=== PATIENT | male | born 1980 | race Caucasian/White ===

== ENCOUNTER 2018-05-21 19:24 | Inpatient (IN) | payer OTHER ==
[~2018-05-21] VITALS: Ht 180.3 cm; Wt 80.7 kg
[2018-05-21] MEDS ORDERED: LORAZEPAM INJ 2 MG/ML VIAL IV ONE (19:30)
[2018-05-21] MEDS ORDERED: IV NS 0.9% 1,000 ML IV ONE ×3 (19:30→21:00)
[2018-05-21] MEDS ORDERED: LORAZEPAM INJ 2 MG/ML VIAL ONE (19:31)
--- NOTE | 2018-05-21 19:37 | NUR ---
PT BBRA FROM HOME C/C RECTAL PAIN S/P BINDING SURGERY FOR HEMORRHOIDS 1 MONTH AGO. HEMORRHOID SEEN DURING ASSESSMENT, WITH NO REDNESS, NO SWELLING, NO DRAINAGE NOTED. PT IS AAOX4. SKIN WARM AND DIAPHORETIC. PT STATES PAIN 10/10. PT NOTED TO BE IN MID DISTRESS D/T RECTAL PAIN. RESP EVEN AND UNLABORED WITH A RATE OF 26-30 PER MINUTE. PT PLACED ON SEISMOGRAPH OPERATOR HELPER AND POX, PT NOTED TO BE SINUS TACHY AT 135-145 PER MINUTE. PT SAFETY AND COMFORT MEASURES IN PLACE. PT DENIES ANY ABD PAIN AT THIS TIME. PT KEEPS STATING "I WANT TO PUSH THE HEMORRHOID BACK IN". PT SAFETY AND COMFORT MEASURES IN PLACE. AWAITING MD FOR MELI
--- NOTE | 2018-05-21 19:38 | NUR ---
BLOOD CULTURES AND BLOOD SAMPLES COLLECTED AND SENT TO LAB
[2018-05-21 19:43] LABS: EOSINOPHILS % (AUTO) 0.1 % (0.0-6.0); MEAN CORPUSCULAR HEMOGLOBIN 24 PG (26.0-33.0); MEAN CORPUSCULAR HGB CONC 33 g/dl (31.0-36.0); MEAN CORPUSCULAR VOLUME 74 fL (80-96); MONOCYTES # (AUTO) 1.1 /CMM (0.1-1.30)
--- NOTE | 2018-05-21 19:43 | NUR ---
CONVERTING SUPERVISOR BEDSIDE FOR CHEST X-RAY
[2018-05-21 19:46] LABS: BASOPHILS # (AUTO) 0.3 /CMM (0.0-0.2); BASOPHILS % (AUTO) 1.7 % (0.0-2.0); HEMATOCRIT 49 % (39-51); LYMPHOCYTES # (AUTO) 1.7 /CMM (0.8-4.8); LYMPHOCYTES % (AUTO) 11.6 % (20.0-44.0); MONOCYTES % (AUTO) 7.3 % (2.0-12.0); NEUTROPHILS % (AUTO) 79.3 % (43.0-81.0); PLATELET COUNT (AUTO) 517 /CMM (150-450); RDW COEFFICIENT OF VARIATION 16.3 (11.5-15.0); WHITE BLOOD COUNT (AUTO) 15.1 K/uL (4.3-11.0)
--- NOTE | 2018-05-21 19:50 | NUR ---
PT UNABLE TO GIVE URINE SAMPLE AT THIS TIME. WILL TRY AGAIN. MADE AWARE
[2018-05-21] MEDS ORDERED: HYDROMORPHONE INJ 2 MG/ML DISP.SYRIN ONE (19:53)
[2018-05-21 19:54] LABS: CALCIUM, SERUM 12.6 mg/dL (8.5-10.1); CREATININE 4.1 mg/dL (0.6-1.3); GLUCOSE 215 mg/dL (74-106); UREA NITROGEN, BLOOD 22 mg/dL (7-18)
[2018-05-21 19:58] LABS: INR 0.89 (0.85-1.15)
[2018-05-21 19:59] LABS: CARBON DIOXIDE 15 mmol/L (21-32); CHLORIDE 90 mmol/L (98-107); POTASSIUM 3.3 mmol/L (3.5-5.1); SODIUM SERUM 135 mmol/L (136-145)
[2018-05-21] MEDS ORDERED: HYDROMORPHONE 1 MG/1 ML DISP.SYRIN IV ONE (20:00)
[2018-05-21 20:02] LABS: TROPONIN I < 0.017 ng/mL (0.00-0.056)
[2018-05-21 20:06] LABS: ALANINE AMINOTRANSFERASE 30 U/L (12-78); ALKALINE PHOSPHATASE 94 U/L (46-116); ASPARTATE AMINOTRANSFERASE 28 U/L (15-37); BILIRUBIN,DIRECT 0.2 mg/dL (0.0-0.2); BILIRUBIN,TOTAL 0.8 mg/dL (0.2-1.0); TOTAL PROTEIN, SERUM 11.8 g/dL (6.4-8.2)
[2018-05-21 20:08] LABS: ALBUMIN 6.9 g/dL (3.4-5.0)
--- NOTE | 2018-05-21 20:15 | NUR ---
PT UNABLE TO GIVE URINE SAMPLE AT THIS TIME. WATER PROVIDED TO PT. WILL TRY AGAIN. MADE AWARE
--- NOTE | 2018-05-21 20:53 | NUR ---
PAGED DR RONNA CAPPS FOR PANEL ADMISSION
[2018-05-21] MEDS ORDERED: LEVOFLOXACIN 750 MG /D5W 150ML 150 ML IV ONE (20:56)
--- NOTE | 2018-05-21 20:57 | NUR ---
PT ASSIGNED TELE [id number]
[2018-05-21] MEDS ORDERED: LEVOFLOXACIN 750 MG /D5W 150ML 750 MG in PREMIX 1 EA IV SCH (21:00)
[2018-05-21] MEDS ORDERED: MAG HYDROX/AL HYDROX/SIMETH 30 ML UDC PO PRN (21:30)
[2018-05-21] MEDS ORDERED: ACETAMINOPHEN 325 MG TABLET PO PRN (21:30)
[2018-05-21] MEDS ORDERED: MAGNESIUM HYDROXIDE 30 ML UDC PO PRN (21:30)
[2018-05-21] MEDS ORDERED: ONDANSETRON HCL/PF 4 MG/2 ML VIAL IVP PRN (21:30)
[2018-05-21] MEDS ORDERED: ZOLPIDEM TARTRATE 5 MG TABLET PO PRN (21:30)
[2018-05-21] MEDS ORDERED: INSULIN REGULAR, HUMAN 100 UNIT/ML 3 ML VIAL SQ PRN (21:30)
[2018-05-21] MEDS ORDERED: *INSULIN REGULAR(HUMULIN R)HUM 100 UNIT/ML VIAL SQ PRN (21:30)
[2018-05-21] MEDS ORDERED: DEXTROSE 50%-WATER 50 ML DISP.SYRIN IV PRN (21:30)
[2018-05-21] MEDS ORDERED: Z GUARD REMEDY 2 OZ OINT TP PRN (21:30)
--- NOTE | 2018-05-21 21:40 | NUR ---
PT UNABLE TO GIVE URINE SAMPLE. MADE AWARE. PT REFUSED WELCH CATH
--- NOTE | 2018-05-21 21:44 | NUR ---
REPORT GIVEN TO JASBIR MONTGOMERY FOR LIBBY.
[2018-05-21 22:00] VITALS: BP 136/81
[2018-05-21 22:00] LABS: CREATINE KINASE MB 2.5 ng/mL (0-3.6)
--- NOTE | 2018-05-21 22:00 | NUR ---
TIRE BUSTER NOTE PT RECEIVED VIA MaPSRNEY AND ABLE TO AMBULATE WITH STEADY GAIT TO BED. A/O X4 AND ABLE TO VERBALIZE NEEDS WITH FAMILY AT BEDSIDE. C/O SLIGHT PAIN TO RECTAL AREA.WILL CHECK ORDERS FOR PAIN MEDICATION. ON ROOM AIR AND SATURATING WELL. BREATHING REGULAR AND UNLABORED. TELE- SINUS RHYTHM 80'S. PATIENT UNABLE TO URINATE AT THIS TIME. INFORMED PATIENT HOW TO USE URINAL FOR URINE SPECIMEN. CALL LIGHT WITHIN REACH. WILL CONTINUE TO MONITOR.
[2018-05-21] MEDS: IV NS 0.9% 1,000 ML IV SCH (22:25)
[2018-05-21] MEDS: BLOOD SUGAR DIAGNOSTIC 1 EACH STRIP VI SCH (22:25)
[2018-05-21] MEDS: HYDROCODONE/APAP 5/325MG 1 EACH TABLET PO PRN (22:33)
[2018-05-22] VITALS: BP 131/87
--- NOTE | 2018-05-22 02:50 | NUR ---
0250 DR. CAPPS WAS NOTIFIED THAT PATIENT HAS NOT HAD URINE OUTPUT SINCE ADMITTED TO ED WITH NO ORDER MADE. PT. IS SLEEPING AT THIS TIME. NO SIGNS OF DISTRESS NOTED. NO BLADDER DISTENTION NOTED. WILL CONTINUE TO MONITOR.
--- NOTE | 2018-05-22 03:50 | NUR ---
0350 AMBULATED TO BATHROOM WITH STEADY GAIT. VOIDED 450ML OF FRANCISCA URINE.
[2018-05-22] MEDS: HYDROCODONE/APAP 5/325MG 1 EACH TABLET PO PRN (03:56)
[2018-05-22 04:00] VITALS: BP 156/93
[2018-05-22 06:21] LABS: BILIRUBIN,DIRECT 0.1 mg/dL (0.0-0.2); BILIRUBIN,TOTAL 0.5 mg/dL (0.2-1.0); CALCIUM, SERUM 8.3 mg/dL (8.5-10.1); CREATININE 1.5 mg/dL (0.6-1.3); MAGNESIUM 2.4 mg/dL (1.8-2.4); POTASSIUM 3.5 mmol/L (3.5-5.1); TOTAL PROTEIN, SERUM 7.2 g/dL (6.4-8.2)
[2018-05-22] MEDS: IV NS 0.9% 1,000 ML IV SCH (06:21)
[2018-05-22 06:41] LABS: CREATINE KINASE MB 3.9 ng/mL (0-3.6); THYROID STIMULATING HORMONE 1.354 uIU/mL (0.358-3.74)
[2018-05-22 07:35] LABS: BASOPHILS % (AUTO) 0.2 % (0.0-2.0); EOSINOPHILS % (AUTO) 0.6 % (0.0-6.0); HEMATOCRIT 34 % (39-51); HEMOGLOBIN 11.1 g/dL (13.5-17.5); LYMPHOCYTES # (AUTO) 1.9 /CMM (0.8-4.8); LYMPHOCYTES % (AUTO) 21.7 % (20.0-44.0); MEAN CORPUSCULAR HEMOGLOBIN 25 PG (26.0-33.0); MEAN CORPUSCULAR HGB CONC 33 g/dl (31.0-36.0); MEAN CORPUSCULAR VOLUME 76 fL (80-96); MONOCYTES # (AUTO) 1.1 /CMM (0.1-1.30); MONOCYTES % (AUTO) 12.4 % (2.0-12.0); NEUTROPHILS # (AUTO) 5.6 /CMM (1.8-8.9); NEUTROPHILS % (AUTO) 65.1 % (43.0-81.0); PLATELET COUNT (AUTO) 338 /CMM (150-450); RDW COEFFICIENT OF VARIATION 17.5 (11.5-15.0); RED BLOOD CELL COUNT(AUTO) 4.48 MIL/uL (4.5-6.0); WHITE BLOOD COUNT (AUTO) 8.6 K/uL (4.3-11.0)
[2018-05-22 07:40] LABS: APPEARANCE,URINE CLOUDY (CLEAR); BILIRUBIN,URINE 1+ (NEGATIVE); BLOOD, URINE 1+ Ery/uL (NEGATIVE); COLOR,URINE YELLOW (YELLOW); KETONES,URINE 1+ (NEGATIVE); LEUKOCYTE ESTERASE ,URINE NEGATIVE (NEGATIVE); NITRITE, URINE NEGATIVE (NEGATIVE); PROTEIN,URINE 2+ mg/dl (NEGATIVE); UGLUCOSE NEGATIVE (NEGATIVE); UROBILINOGEN,URINE 0.2 EU/dL (0.2)
[2018-05-22] MEDS: BLOOD SUGAR DIAGNOSTIC 1 EACH STRIP VI SCH (07:55)
[2018-05-22 08:00] VITALS: BP 110/66
[2018-05-22] MEDS ORDERED: HYDROMORPHONE INJ 2 MG/ML DISP.SYRIN IV PRN ×2 (08:00→11:30)
--- NOTE | 2018-05-22 08:00 | NUR ---
TELE1/RN AM SHIFT INITIAL NOTES RECEIVED PT AWAKE IN BED, A/O X 4, RESTLESS WANTING PAIN MEDICATION RATED 9/10 FOR HEMORRHOIDS, LAST PAIN MEDICATION GIVEN AT 0600 PER PT NOT WORKING FOR HIM, WILL CONTACT FISH BIN TENDER MD. ON ROOM AIR SATURATING @ 99% LUNG SOUNDS CLEAR, ON TELE MONITORING WITH SINUS RHYTHM, HR 71. WITH ON GOING IV IN FUSION OF NS @ 125CC/HR, IV SITES PATENT WITH NO S/S OF INFECTION. BLOOD GLUCOSE CHECKED, RESULT 95, NO S/S OF HYPO OR HYPERGLYCEMIA. SCHEDULED AM MEDS TO BE GIVEN.
[2018-05-22 08:04] LABS: BACTERIA,URINE Rare /HPF (None Seen); FINE GRANULAR CASTS,URINE Moderate /LPF (None Seen); MUCUS,URINE Few /LPF (None Seen); URINE AMORPHOUS URATE Few /HPF (None Seen)
[2018-05-22 09:00] VITALS: BP 110/66
--- NOTE | 2018-05-22 11:00 | NUR ---
TELE1/RN ROUNDS - VIRGINIA CHAPMAN UPDATED PT'S CONDITION. PT SEEN & EXAMINED BY VIRGINIA CHAPMAN. NO NEW ORDERS RECEIVED AT THIS TIME. MONITORING CONTINUED.
--- NOTE | 2018-05-22 11:15 | NUR ---
TELE1/RN ELOPEMENT WHILE I WAS ROUNDING WITH OTHER PRIMARY MD FOR MY OTHER PTS. I WAS NOTIFIED BY JASBIR ARCHER THAT SHE SAW PT DRESSED AND WALKING OUT OF THE UNIT PARK, STORAGE FACILITY RENTAL CLERK WAS ORDERED TO CALL SECURITY TO STOPPED THE PT FROM LEAVING. NURSE GIANNI WAS ABLE TO CAUGHT UP WITH THE PT AND VERBALIZED "YOU'RE NOT HELPING ME, I AM GOING TO [place] TO GET SOME HELP," PT WAS WALKING SO FAST THAT PT LAST SEEN WALKING IN [facility] TOWARDS THE [facility]. PT STILL HAD THE TWO (2) IV SITES IN PLACED AND I.D. BAND. PRIMARY MD, ADELA WAS STILL ROUNDING THE UNIT PARK WITH HIS OTHER PT, NOTIFIED. CHARGE NURSE AND NURSING CLOTH CALENDER WAS MADE AWARE. Addendum: 05/22/18 at 1543 by NANCI HOGUE RN ADDENDUM: RECEIVED A CALL FROM PT'S MOTHER WHO IS AWARE THAT HIS SON'S ELOPEMENT, SAID THAT SHE HAVING DIFFICULTY CONTROLLING HIS SON.
--- NOTE | 2018-05-22 13:00 | NUR ---
TELE1/RN POLICE REPORT - NON-EMERGENCY PT'S ELOPEMENT REPORTED TO POLICE NON-EMERGENCY NUMBER [phone], REPORT TAKEN BY TOOL PUSHER 260. Addendum: 05/22/18 at 1544 by NANCI HOGUE RN ADDENDUM: NON-EMERGENCY POLICE NUMBER WAS SO BUSY THAT IT TOOK A LONG TIME BEFORE THE CALL WENT THROUGH. Addendum: 05/22/18 at 1558 by NANCI HOGUE RN ADDENDUM: INCIDENT REPORT DONE: [id number]
== END 2018-05-22 11:15 | disposition left against medical advice (07) | DRG 683 ==
LOC: EDBD 19:27 → ER 19:27 → TELE-TD 20:58 → TELE1 22:00
PROVIDERS: ADMIT Internal Medicine; ATTEND Internal Medicine
DX: N17.0 Acute kidney failure with tubular necrosis (principal); E87.1 Hypo-osmolality and hyponatremia; M62.82 Rhabdomyolysis; R65.10 Systemic inflammatory response syndrome (SIRS) of non-infectious origin without acute organ dysfunction; E87.2 Acidosis; E87.6 Hypokalemia; M19.90 Unspecified osteoarthritis, unspecified site; Z88.1 Allergy status to other antibiotic agents; K64.8 Other hemorrhoids; E86.1 Hypovolemia; G89.4 Chronic pain syndrome
CPT/HCPCS: 36415; 71045-TC; 80048-TC; 80076-TC; 81000-TC; 82550-TC; 82553-TC; 82962-TC; 83605-TC; 83735-TC; 84100-TC; 84443-TC; 84484-TC; 85025-TC; 85730-TC; 87040-TC; 87081-TC; 87086-TC; A4216; A4606; A6253; J1170; J1815; J1956; J2060; J7030; Z7610